=== PATIENT | male | born 1975 | race Asian ===

== ENCOUNTER 2016-10-20 05:54 | Emergency (ER) | payer OTHER ==
[~2016-10-20] VITALS: Ht 185.4 cm; Wt 115.9 kg
[~2016-10-20 05:54] MED LIST: AMLO-511 PO; LISI40TA4 PO; LORA1TAB3 PO; PARO20TA24 PO; VENL-53 PO
[2016-10-20] MEDS ORDERED: MECLIZINE HCL 25 MG TABLET PO ONE (06:30)
[2016-10-20 07:19] VITALS: BP 155/94
== END 2016-10-20 07:40 | disposition home or self-care (01) ==
LOC: EMS 05:56
DX: R42 Dizziness and giddiness (principal); K21.9 Gastro-esophageal reflux disease without esophagitis; I10 Essential (primary) hypertension; Z88.1 Allergy status to other antibiotic agents
CPT/HCPCS: 99282

== ENCOUNTER 2017-02-03 12:46 | Emergency (ER) | payer OTHER ==
[~2017-02-03] VITALS: Ht 185.4 cm; Wt 119.5 kg
[~2017-02-03 12:46] MED LIST changes: -AMLO-511 PO; -PARO20TA24 PO
[2017-02-03] MEDS ORDERED: VENL50TA44 PO (13:09)
[2017-02-03] MEDS ORDERED: TAMS0.4C32 PO (13:09)
[2017-02-03] MEDS ORDERED: VENL-193 PO (13:09)
[2017-02-03] MEDS ORDERED: MULT1TAB69 PO (13:09)
[2017-02-03 14:40] VITALS: BP 151/100
== END 2017-02-03 14:43 | disposition home or self-care (01) ==
LOC: EMS 12:47
DX: T78.40XA Allergy, unspecified, initial encounter (principal); F41.9 Anxiety disorder, unspecified; I10 Essential (primary) hypertension; K21.9 Gastro-esophageal reflux disease without esophagitis; Z88.1 Allergy status to other antibiotic agents; X58.XXXA Exposure to other specified factors, initial encounter
CPT/HCPCS: 99281

== ENCOUNTER 2017-03-04 08:53 | Emergency (ER) | payer OTHER ==
[~2017-03-04] VITALS: Ht 188 cm; Wt 120.5 kg
[~2017-03-04 08:53] MED LIST changes: +MULT1TAB69 PO; +TAMS0.4C32 PO; +VENL-193 PO; -VENL-53 PO; +VENL50TA44 PO
[2017-03-04 08:54] VITALS: BP 151/100
[2017-03-04] MEDS ORDERED: KETOROLAC TROMETHAMINE 60 MG/2 ML VIAL IM ONE (09:45)
== END 2017-03-04 10:21 | disposition home or self-care (01) ==
LOC: EMS 08:57
DX: S13.4XXA Sprain of ligaments of cervical spine, initial encounter (principal); I10 Essential (primary) hypertension; K21.9 Gastro-esophageal reflux disease without esophagitis; Z88.1 Allergy status to other antibiotic agents; X50.0XXA Overexertion from strenuous movement or load, initial encounter; Y93.89 Activity, other specified; Y92.89 Other specified places as the place of occurrence of the external cause; Y99.8 Other external cause status
CPT/HCPCS: 96372; 99283; J1885

== ENCOUNTER 2017-03-08 01:20 | Emergency (ER) | payer OTHER ==
[~2017-03-08] VITALS: Ht 182.9 cm; Wt 109.0 kg
[2017-03-08] MEDS ORDERED: OXYC-341 PO (01:43)
[2017-03-08] MEDS ORDERED: IBUP-2070 PO (01:43)
[2017-03-08 07:01] VITALS: BP 155/105
== END 2017-03-08 07:12 | disposition home or self-care (01) ==
LOC: EMS 01:25
DX: R51 Headache (principal); I10 Essential (primary) hypertension; K21.9 Gastro-esophageal reflux disease without esophagitis; F19.90 Other psychoactive substance use, unspecified, uncomplicated; Z88.1 Allergy status to other antibiotic agents
CPT/HCPCS: 70450; 99284

== ENCOUNTER 2017-03-21 13:40 | Emergency (ER) | payer OTHER ==
[~2017-03-21] VITALS: Ht 185.4 cm; Wt 118.2 kg
[~2017-03-21 13:40] MED LIST changes: +IBUP-2070 PO; -MULT1TAB69 PO; +OXYC-530 PO; -TAMS0.4C32 PO; -VENL50TA44 PO
[2017-03-21] MEDS ORDERED: AMLO-511 PO (13:43)
[2017-03-21 14:50] LABS: BASOPHILS # (AUTO) 0.02 K/uL (0.00-0.20); BASOPHILS % (AUTO) 0.3 % (0.0-2.0); EOSINOPHILS # (AUTO) 0.03 K/uL (0.00-0.70); EOSINOPHILS % (AUTO) 0.38 % (1.0-6.0); HEMATOCRIT 43.7 % (41-53); HEMOGLOBIN 14.5 g/dL (13.5-17.5); LYMPHOCYTES # (AUTO) 1.9 K/uL (1.0-4.8); MEAN CORPUSCULAR HEMOGLOBIN 28.6 pg (26.0-34.0); MEAN CORPUSCULAR HGB CONC 33.1 G/dL (31.0-37.0); MEAN CORPUSCULAR VOLUME 86 fL (80-100); MONOCYTES # (AUTO) 0.5 K/uL (0.1-1.0); MONOCYTES % (AUTO) 7.1 % (2.0-9.0); NEUTROPHILS # (AUTO) 4.5 K/uL (1.8-7.7); NEUTROPHILS % (AUTO) 65.2 % (40.0-70.0); PLATELET COUNT (AUTO) 250 K/uL (150-450); RED BLOOD CELL COUNT(AUTO) 5.05 MIL/uL (4.50-5.90); RED CELL DISTRIBUTION WIDTH 13.3 % (11.5-14.5); WHITE BLOOD COUNT (AUTO) 6.9 K/uL (4.5-11.0)
[2017-03-21 15:02] LABS: ANION GAP 8 mmol/L (8-16); CALCIUM, TOTAL 9.5 mg/dL (8.8-10.5); CARBON DIOXIDE 31 mmol/L (22-29); CHLORIDE 105 mmol/L (98-107); CREATININE 0.87 mg/dL (0.60-1.30); GLOMERULAR FILTR. RATE CALC > 60 mL/min (>60); POTASSIUM 4.3 mmol/L (3.5-5.1); SODIUM SERUM 144 mmol/L (136-145); UREA NITROGEN, BLOOD 15 mg/dL (7-18)
[2017-03-21 15:06] LABS: ALANINE AMINOTRANSFERASE 29 U/L (12-78); ALBUMIN 3.8 g/dL (3.4-5.0); ASPARTATE AMINOTRANSFERASE 15 U/L (15-37); BILIRUBIN,TOTAL 0.4 mg/dL (0.1-1.0); TOTAL PROTEIN, SERUM 8.2 g/dL (6.4-8.2)
[2017-03-21] MEDS ORDERED: VENL-67 PO (15:09)
[2017-03-21] MEDS ORDERED: SODIUM CHLORIDE 0.9% 1,000 ML IV ONE (15:15)
[2017-03-21] MEDS ORDERED: ONDANSETRON HCL 4 MG/2 ML VIAL IVP ONE (15:15)
[2017-03-21 15:21] LABS: APPEARANCE,URINE CLEAR (CLEAR); GLUCOSE, URINE (UA) NEGATIVE (NEGATIVE); KETONES,URINE TRACE mg/dL (NEGATIVE); LEUKOCYTE ESTERASE ,URINE NEGATIVE (NEGATIVE); OCCULT BLOOD,URINE NEGATIVE (NEGATIVE); PH,URINE 6.5 (5.0-8.0); PROTEIN,URINE TRACE (NEGATIVE)
[2017-03-21 15:22] LABS: ADD UA MICROSCOPIC NO
[2017-03-21] MEDS ORDERED: PROMETHAZINE HCL 25 MG TABLET PO ONE (15:30)
[2017-03-21 16:37] VITALS: BP 134/85
== END 2017-03-21 17:07 | disposition home or self-care (01) ==
LOC: EMS 13:41
DX: R10.11 Right upper quadrant pain (principal); R11.0 Nausea; I10 Essential (primary) hypertension; K21.9 Gastro-esophageal reflux disease without esophagitis; F15.90 Other stimulant use, unspecified, uncomplicated; Z98.84 Bariatric surgery status; Z88.1 Allergy status to other antibiotic agents
CPT/HCPCS: 36415; 80053; 80307; 81003; 83690; 85025; 96360; 99284; J2405; J7030

== ENCOUNTER 2017-08-14 11:10 | Emergency (ER) | payer OTHER ==
[~2017-08-14] VITALS: Ht 185.4 cm; Wt 125.9 kg
[~2017-08-14 11:10] MED LIST changes: +AMLO-511 PO; -OXYC-530 PO; -VENL-193 PO; +VENL-67 PO
[2017-08-14] MEDS ORDERED: PROM25S PR (11:44)
[2017-08-14 12:01] LABS: RAPID GROUP A STREP NEGATIVE (NEGATIVE)
[2017-08-14 12:05] LABS: INFLUENZA TYPE A NEGATIVE FOR TYPE A (NEGATIVE); INFLUENZA TYPE B NEGATIVE FOR TYPE B (NEGATIVE)
[2017-08-14] MEDS ORDERED: SODIUM CHLORIDE 0.9% 1,000 ML IV ONE (12:45)
[2017-08-14] MEDS ORDERED: IBUPROFEN 800 MG TABLET PO ONE (12:45)
[2017-08-14 14:04] VITALS: BP 136/96
== END 2017-08-14 14:10 | disposition home or self-care (01) ==
LOC: EMS 11:11
DX: J11.1 Influenza due to unidentified influenza virus with other respiratory manifestations (principal); J02.9 Acute pharyngitis, unspecified; B34.9 Viral infection, unspecified; F41.9 Anxiety disorder, unspecified; I10 Essential (primary) hypertension; K21.9 Gastro-esophageal reflux disease without esophagitis; F15.90 Other stimulant use, unspecified, uncomplicated; Z88.1 Allergy status to other antibiotic agents
CPT/HCPCS: 87430; 87804; 96360; 99284; J7030

== ENCOUNTER 2017-09-30 09:39 | Emergency (ER) | payer OTHER ==
[~2017-09-30] VITALS: Ht 188 cm; Wt 128.0 kg
[~2017-09-30 09:39] MED LIST changes: +PROM25S PR
[2017-09-30 10:54] VITALS: BP 146/97
== END 2017-09-30 11:00 | disposition home or self-care (01) ==
LOC: EMS 09:42
DX: S43.402A Unspecified sprain of left shoulder joint, initial encounter (principal); F32.9 Major depressive disorder, single episode, unspecified; F41.9 Anxiety disorder, unspecified; I10 Essential (primary) hypertension; K21.9 Gastro-esophageal reflux disease without esophagitis; F15.10 Other stimulant abuse, uncomplicated; Z98.84 Bariatric surgery status; Z88.1 Allergy status to other antibiotic agents; Z79.899 Other long term (current) drug therapy; X58.XXXA Exposure to other specified factors, initial encounter; Y93.89 Activity, other specified; Y92.89 Other specified places as the place of occurrence of the external cause; Y99.8 Other external cause status
CPT/HCPCS: 99283

== ENCOUNTER 2019-09-30 16:06 | Emergency (ER) | payer SELFPAY ==
[~2019-09-30 16:06] MED LIST changes: -AMLO-511 PO; -IBUP-2070 PO; +LORA-1000 PO; -LORA1TAB3 PO; -PROM25S PR
== END 2019-09-30 17:36 | disposition left against medical advice (07) ==
LOC: EMS 16:08
DX: R05 Cough (principal); Z53.21 Procedure and treatment not carried out due to patient leaving prior to being seen by health care provider

== ENCOUNTER 2019-12-18 08:07 | Emergency (ER) | payer OTHER ==
[~2019-12-18] VITALS: Ht 188 cm; Wt 136.4 kg
[2019-12-18] MEDS ORDERED: PRUC2TAB PO (08:16)
[2019-12-18] MEDS ORDERED: DOXA2TAB PO (08:16)
[2019-12-18] MEDS ORDERED: ONDA-104 PO (08:18)
[2019-12-18] MEDS ORDERED: PROM25S PR (08:18)
[2019-12-18] MEDS ORDERED: [UNRECOGNIZED DRUG - CODE] PO (08:18)
[2019-12-18] MEDS ORDERED: PB/HYOSCY/ATR/SCOP/LIDO/MAALOX 55 ML BOTTLE PO ONE (10:00)
[2019-12-18 10:19] LABS: BASOPHILS % (AUTO) 0.5 % (0.0-2.0); EOSINOPHILS % (AUTO) 0.3 % (1.0-6.0); HEMATOCRIT 44.5 % (41-53); HEMOGLOBIN 14.6 g/dL (13.5-17.5); MEAN CORPUSCULAR HEMOGLOBIN 28.2 pg (26.0-34.0); MEAN CORPUSCULAR HGB CONC 32.7 G/dL (31.0-37.0); MEAN CORPUSCULAR VOLUME 86 fL (80-100); MONOCYTES # (AUTO) 0.4 K/uL (0.1-1.0); MONOCYTES % (AUTO) 6.7 % (2.0-9.0); NEUTROPHILS # (AUTO) 4.3 K/uL (1.8-7.7); NEUTROPHILS % (AUTO) 74.5 % (40.0-70.0); PLATELET COUNT (AUTO) 238 K/uL (150-450); RED BLOOD CELL COUNT(AUTO) 5.16 MIL/uL (4.50-5.90); RED CELL DISTRIBUTION WIDTH 13.5 % (11.5-14.5)
[2019-12-18 10:34] LABS: PROTHROMBIN TIME 10.6 SEC (9.4-11.6)
[2019-12-18 10:35] LABS: ANION GAP 9 mmol/L (8-16); CALCIUM, TOTAL 8.9 mg/dL (8.8-10.5); CARBON DIOXIDE 27 mmol/L (22-29); CHLORIDE 105 mmol/L (98-107); CREATININE 0.96 mg/dL (0.60-1.30); GLOMERULAR FILTR. RATE CALC > 60 mL/min (>60); GLUCOSE,RANDOM 117 mg/dL (70-110); POTASSIUM 3.8 mmol/L (3.5-5.1); SODIUM SERUM 141 mmol/L (136-145); UREA NITROGEN, BLOOD 17 mg/dL (7-18)
[2019-12-18 10:55] LABS: B-TYPE NATRIURETIC PEPTIDE 15 pg/mL (0-100)
[2019-12-18 11:03] LABS: ALANINE AMINOTRANSFERASE 23 U/L (12-78); ALKALINE PHOSPHATASE 83 U/L (46-116); ASPARTATE AMINOTRANSFERASE 16 U/L (15-37); BILIRUBIN,TOTAL 0.4 mg/dL (0.1-1.0); CREATINE KINASE, TOTAL ONLY 129 U/L (39-308); TOTAL PROTEIN, SERUM 8.2 g/dL (6.4-8.2)
[2019-12-18 11:07] LABS: BILIRUBIN,URINE NEGATIVE (NEGATIVE); GLUCOSE, URINE (UA) NEGATIVE (NEGATIVE); KETONES,URINE NEGATIVE (NEGATIVE); LEUKOCYTE ESTERASE ,URINE NEGATIVE (NEGATIVE); NITRATE,URINE NEGATIVE (NEGATIVE); OCCULT BLOOD,URINE NEGATIVE (NEGATIVE); PH,URINE 7.5 (5.0-8.0); PROTEIN,URINE NEGATIVE (NEGATIVE); UROBILINOGEN,URINE 0.2 mg/dL (<=1.0)
[2019-12-18 11:11] LABS: APPEARANCE,URINE HAZY (CLEAR)
[2019-12-18 11:12] LABS: AMPHET/METH SCREEN,URINE NEGATIVE (NEGATIVE); BARBITURATE SCREEN, URINE NEGATIVE (NEGATIVE); BENZODIAZEPINES SCREEN,URINE NEGATIVE (NEGATIVE); CANNABINOID SCREEN,URINE NEGATIVE (NEGATIVE); COCAINE SCREEN,URINE NEGATIVE (NEGATIVE); METHADONE SCREEN, URINE NEGATIVE (NEGATIVE); OPIATE SCREEN,URINE NEGATIVE (NEGATIVE)
[2019-12-18 11:13] LABS: PHENCYCLIDINE SCREEN,URINE NEGATIVE (NEGATIVE)
[2019-12-18 11:44] VITALS: BP 148/70
== END 2019-12-18 11:40 | disposition home or self-care (01) ==
LOC: EMS 08:09
DX: K21.9 Gastro-esophageal reflux disease without esophagitis (principal); F15.90 Other stimulant use, unspecified, uncomplicated; F41.9 Anxiety disorder, unspecified; F32.9 Major depressive disorder, single episode, unspecified; Z88.8 Allergy status to other drugs, medicaments and biological substances; Z79.899 Other long term (current) drug therapy
CPT/HCPCS: 93005

== ENCOUNTER 2020-01-30 12:32 | Emergency (ER) | payer OTHER ==
[~2020-01-30] VITALS: Ht 188 cm; Wt 136.4 kg
[~2020-01-30 12:32] MED LIST changes: +DOXA2TAB PO; +ONDA-104 PO; +PROM25S PR; +PRUC2TAB PO; +[UNRECOGNIZED DRUG - CODE] PO
[2020-01-30] MEDS ORDERED: LORazepam 1 MG TABLET PO ONE (13:30)
[2020-01-30 14:20] VITALS: BP 144/90
== END 2020-01-30 14:27 | disposition home or self-care (01) ==
LOC: EMS 12:34
DX: F41.9 Anxiety disorder, unspecified (principal); Z20.828 Contact with and (suspected) exposure to other viral communicable diseases; F15.90 Other stimulant use, unspecified, uncomplicated; F32.9 Major depressive disorder, single episode, unspecified; I10 Essential (primary) hypertension; Z79.899 Other long term (current) drug therapy
CPT/HCPCS: 99283; U0003

== ENCOUNTER 2020-02-03 10:24 | Emergency (ER) | payer OTHER ==
[~2020-02-03] VITALS: Ht 188 cm; Wt 135.4 kg
[2020-02-03 10:34] VITALS: BP 141/95
[2020-02-03 11:57] LABS: BASOPHILS % (AUTO) 0.5 % (0.0-2.0); EOSINOPHILS % (AUTO) 0.3 % (1.0-6.0); HEMOGLOBIN 14.3 g/dL (13.5-17.5); LYMPHOCYTES # (AUTO) 1.5 K/uL (1.0-4.8); LYMPHOCYTES % (AUTO) 20.7 % (22.0-44.0); MEAN CORPUSCULAR HEMOGLOBIN 27.9 pg (26.0-34.0); MEAN CORPUSCULAR HGB CONC 32.6 G/dL (31.0-37.0); MEAN CORPUSCULAR VOLUME 86 fL (80-100); MONOCYTES # (AUTO) 0.4 K/uL (0.1-1.0); MONOCYTES % (AUTO) 5.5 % (2.0-9.0); NEUTROPHILS # (AUTO) 5.4 K/uL (1.8-7.7); PLATELET COUNT (AUTO) 255 K/uL (150-450); RED BLOOD CELL COUNT(AUTO) 5.14 MIL/uL (4.50-5.90); RED CELL DISTRIBUTION WIDTH 13.5 % (11.5-14.5)
[2020-02-03 12:05] LABS: ANION GAP 4 mmol/L (8-16); CALCIUM, TOTAL 8.8 mg/dL (8.8-10.5); CARBON DIOXIDE 30 mmol/L (22-29); CHLORIDE 106 mmol/L (98-107); CREATININE 1.03 mg/dL (0.60-1.30); GLOMERULAR FILTR. RATE CALC > 60 mL/min (>60); GLUCOSE,RANDOM 112 mg/dL (70-110); POTASSIUM 3.9 mmol/L (3.5-5.1); SODIUM SERUM 140 mmol/L (136-145); UREA NITROGEN, BLOOD 22 mg/dL (7-18)
[2020-02-03 12:12] LABS: ALANINE AMINOTRANSFERASE 21 U/L (12-78); ALBUMIN 3.7 g/dL (3.4-5.0); ALKALINE PHOSPHATASE 84 U/L (46-116); ASPARTATE AMINOTRANSFERASE 18 U/L (15-37); BILIRUBIN,TOTAL 0.5 mg/dL (0.1-1.0)
== END 2020-02-03 12:40 | disposition home or self-care (01) ==
LOC: EMS 10:26
DX: R00.2 Palpitations (principal); R07.89 Other chest pain; F41.9 Anxiety disorder, unspecified; R06.00 Dyspnea, unspecified; F32.9 Major depressive disorder, single episode, unspecified; K21.9 Gastro-esophageal reflux disease without esophagitis; I10 Essential (primary) hypertension; F19.90 Other psychoactive substance use, unspecified, uncomplicated; Z88.8 Allergy status to other drugs, medicaments and biological substances; Z79.899 Other long term (current) drug therapy
CPT/HCPCS: 93005; 36415-L1; 36415-TC; 71045-TC

== ENCOUNTER 2020-07-02 15:24 | Emergency (ER) | payer OTHER ==
[~2020-07-02] VITALS: Ht 188 cm; Wt 136.4 kg
[~2020-07-02 15:24] MED LIST changes: -PROM25S PR; +PROM25SU10 PR
[2020-07-02] MEDS ORDERED: LINA290C PO (15:37)
[2020-07-02] MEDS ORDERED: VENL-68 PO (15:37)
[2020-07-02] MEDS ORDERED: AmLODIPine BESYLATE 5 MG TABLET PO ONE (19:30)
[2020-07-02 19:51] LABS: EOSINOPHILS % (AUTO) 0.1 % (1.0-6.0); HEMOGLOBIN 14.5 g/dL (13.5-17.5); LYMPHOCYTES # (AUTO) 1.2 K/uL (1.0-4.8); MONOCYTES # (AUTO) 0.4 K/uL (0.1-1.0); NEUTROPHILS # (AUTO) 6.5 K/uL (1.8-7.7)
[2020-07-02] MEDS ORDERED: SODIUM CHLORIDE 0.9% 1,000 ML IV ONE (20:00)
[2020-07-02 20:05] LABS: ANION GAP 6 mmol/L (8-16); CALCIUM, TOTAL 9.1 mg/dL (8.8-10.5); CARBON DIOXIDE 29 mmol/L (22-29); CHLORIDE 103 mmol/L (98-107); CREATININE 0.87 mg/dL (0.60-1.30); GLOMERULAR FILTR. RATE CALC > 60 mL/min (>60); GLUCOSE,RANDOM 114 mg/dL (70-110); POTASSIUM 3.8 mmol/L (3.5-5.1); SODIUM SERUM 138 mmol/L (136-145); UREA NITROGEN, BLOOD 13 mg/dL (7-18)
[2020-07-02 20:06] LABS: BASOPHILS % (AUTO) 0.3 % (0.0-2.0); LYMPHOCYTES % (AUTO) 14.3 % (22.0-44.0); MEAN CORPUSCULAR HEMOGLOBIN 28.5 pg (26.0-34.0); MEAN CORPUSCULAR VOLUME 87 fL (80-100); MONOCYTES % (AUTO) 5.4 % (2.0-9.0); NEUTROPHILS % (AUTO) 79.9 % (40.0-70.0); PLATELET COUNT (AUTO) 274 K/uL (150-450); RED BLOOD CELL COUNT(AUTO) 5.09 MIL/uL (4.50-5.90); RED CELL DISTRIBUTION WIDTH 13.3 % (11.5-14.5)
[2020-07-02 20:13] LABS: ALANINE AMINOTRANSFERASE 26 U/L (12-78); ALBUMIN 3.9 g/dL (3.4-5.0); ALKALINE PHOSPHATASE 87 U/L (46-116); ASPARTATE AMINOTRANSFERASE 18 U/L (15-37); BILIRUBIN,TOTAL 0.3 mg/dL (0.1-1.0); TOTAL PROTEIN, SERUM 8.3 g/dL (6.4-8.2)
[2020-07-02] MEDS ORDERED: CloNIDine HCL 0.1 MG TABLET PO ONE (20:30)
[2020-07-02 21:23] VITALS: BP 155/100
== END 2020-07-02 21:23 | disposition home or self-care (01) ==
LOC: EMS 15:24
DX: I10 Essential (primary) hypertension (principal); F41.9 Anxiety disorder, unspecified; K21.9 Gastro-esophageal reflux disease without esophagitis; F15.90 Other stimulant use, unspecified, uncomplicated; Z88.1 Allergy status to other antibiotic agents; Z79.899 Other long term (current) drug therapy
CPT/HCPCS: 93005

== ENCOUNTER 2020-09-07 19:17 | Emergency (ER) | payer OTHER ==
[~2020-09-07] VITALS: Ht 188 cm; Wt 140.4 kg
[~2020-09-07 19:17] MED LIST changes: -DOXA2TAB PO; +LINA290C PO; -LISI40TA4 PO; +LISI40TA9 PO; -ONDA-104 PO; -PROM25SU10 PR; -PRUC2TAB PO; -VENL-67 PO; +VENL-68 PO; -[UNRECOGNIZED DRUG - CODE] PO
[2020-09-07] MEDS ORDERED: AMLO-257 PO (19:48)
[2020-09-07] MEDS ORDERED: ACETAMINOPHEN 325 MG TABLET PO ONE (20:00)
[2020-09-07] MEDS ORDERED: HydrOXYzine PAMOATE 50 MG CAPSULE PO ONE (20:00)
[2020-09-07] MEDS ORDERED: DOXA8 PO (20:06)
[2020-09-07] MEDS ORDERED: AmLODIPine BESYLATE 5 MG TABLET PO ONE (20:45)
[2020-09-07 21:46] VITALS: BP 162/103
== END 2020-09-07 22:27 | disposition short-term general hospital (02) ==
LOC: EMS 19:17
DX: G44.209 Tension-type headache, unspecified, not intractable (principal); I10 Essential (primary) hypertension; F41.9 Anxiety disorder, unspecified; F32.9 Major depressive disorder, single episode, unspecified; K21.9 Gastro-esophageal reflux disease without esophagitis; F19.90 Other psychoactive substance use, unspecified, uncomplicated; Z88.8 Allergy status to other drugs, medicaments and biological substances; Z79.899 Other long term (current) drug therapy
CPT/HCPCS: 99285; Z7502; Z7610

== ENCOUNTER 2020-11-04 22:43 | Emergency (ER) | payer OTHER ==
[~2020-11-04] VITALS: Ht 188 cm; Wt 142.7 kg
[~2020-11-04 22:43] MED LIST changes: +AMLO-257 PO; +DOXA8 PO
[2020-11-04 23:30] VITALS: BP 150/82
== END 2020-11-05 00:06 | disposition home or self-care (01) ==
LOC: EMS 22:48
DX: M54.40 Lumbago with sciatica, unspecified side (principal); F15.90 Other stimulant use, unspecified, uncomplicated; F41.9 Anxiety disorder, unspecified; K21.9 Gastro-esophageal reflux disease without esophagitis; I10 Essential (primary) hypertension; Z79.899 Other long term (current) drug therapy; Z88.1 Allergy status to other antibiotic agents
CPT/HCPCS: 99281; Z7502

== ENCOUNTER 2021-03-26 22:31 | Emergency (ER) | payer OTHER ==
[~2021-03-26] VITALS: Ht 188 cm; Wt 143.2 kg
[2021-03-26 22:38] VITALS: BP 137/98
== END 2021-03-27 02:34 | disposition left against medical advice (07) ==
LOC: EMS 22:38
DX: R10.84 Generalized abdominal pain (principal); Z53.21 Procedure and treatment not carried out due to patient leaving prior to being seen by health care provider

== ENCOUNTER 2021-09-07 08:07 | Emergency (ER) | payer BC, OTHER ==
[~2021-09-07] VITALS: Ht 188 cm; Wt 140.9 kg
[2021-09-07] MEDS ORDERED: GABA-1216 PO (08:39)
[2021-09-07] MEDS ORDERED: OXYB5TAB20 PO (08:40)
[2021-09-07] MEDS ORDERED: PANT-31 PO (08:41)
[2021-09-07] MEDS ORDERED: PROM-163 PO (08:43)
[2021-09-07] MEDS ORDERED: ONDANSETRON HCL 4 MG/2 ML VIAL IVP ONE (09:00)
[2021-09-07] MEDS ORDERED: SODIUM CHLORIDE 0.9% 1,000 ML IV ONE (09:00)
[2021-09-07] MEDS ORDERED: DIPHENOXYLATE/ATROP 2.5-0.025 MG/5 ML ORAL.SYG LIQUID PO ONE (09:00)
[2021-09-07 09:19] LABS: BASOPHILS % (AUTO) 0.3 % (0.0-2.0); EOSINOPHILS % (AUTO) 0.3 % (1.0-6.0); HEMATOCRIT 44.2 % (41-53); HEMOGLOBIN 14.6 g/dL (13.5-17.5); LYMPHOCYTES # (AUTO) 0.6 K/uL (1.0-4.8); LYMPHOCYTES % (AUTO) 4.3 % (22.0-44.0); MEAN CORPUSCULAR HEMOGLOBIN 27.5 pg (26.0-34.0); MEAN CORPUSCULAR VOLUME 83 fL (80-100); MONOCYTES # (AUTO) 0.9 K/uL (0.1-1.0); MONOCYTES % (AUTO) 6.3 % (2.0-9.0); NEUTROPHILS # (AUTO) 12.9 K/uL (1.8-7.7); PLATELET COUNT (AUTO) 289 K/uL (150-450); RED CELL DISTRIBUTION WIDTH 13.6 % (11.5-14.5)
[2021-09-07 09:20] LABS: NEUTROPHILS % (AUTO) 88.8 % (40.0-70.0)
[2021-09-07 09:32] LABS: ANION GAP 9 mmol/L (8-16); CALCIUM, TOTAL 9.1 mg/dL (8.8-10.5); CARBON DIOXIDE 28 mmol/L (22-29); CHLORIDE 103 mmol/L (98-107); CREATININE 0.89 mg/dL (0.60-1.30); GLOMERULAR FILTR. RATE CALC > 60 mL/min (>60); GLUCOSE,RANDOM 130 mg/dL (70-110); POTASSIUM 4.1 mmol/L (3.5-5.1); SODIUM SERUM 140 mmol/L (136-145); UREA NITROGEN, BLOOD 18 mg/dL (7-18)
[2021-09-07 09:38] LABS: ALANINE AMINOTRANSFERASE 24 U/L (12-78); ALBUMIN 3.6 g/dL (3.4-5.0); ALKALINE PHOSPHATASE 91 U/L (46-116); ASPARTATE AMINOTRANSFERASE 17 U/L (15-37); BILIRUBIN,TOTAL 0.3 mg/dL (0.1-1.0); LIPASE 71 U/L (73-393); TOTAL PROTEIN, SERUM 8.2 g/dL (6.4-8.2)
[2021-09-07 12:07] VITALS: BP 143/63
[2021-09-07] MEDS ORDERED: ONDA-104 PO (12:07)
== END 2021-09-07 12:53 | disposition home or self-care (01) ==
LOC: EMS 08:18
DX: R11.2 Nausea with vomiting, unspecified (principal); I10 Essential (primary) hypertension; E78.00 Pure hypercholesterolemia, unspecified; K21.9 Gastro-esophageal reflux disease without esophagitis; F32.9 Major depressive disorder, single episode, unspecified; F15.90 Other stimulant use, unspecified, uncomplicated; Z88.1 Allergy status to other antibiotic agents; Z79.899 Other long term (current) drug therapy
CPT/HCPCS: 36415; 80053; 83690; 85025; 96361; 96374; 99283; J2405

== ENCOUNTER 2021-10-04 11:45 | Emergency (ER) | payer BC ==
[~2021-10-04] VITALS: Ht 188 cm; Wt 135.0 kg
[~2021-10-04 11:45] MED LIST changes: +GABA-1216 PO; +ONDA-104 PO; +OXYB5TAB20 PO; +PANT-31 PO; +PROM-163 PO
[2021-10-04] MEDS ORDERED: PERTUSS(ACELL),DIPH,TET VAC/PF 0.5 ML SYRINGE IM. ONE (12:30)
[2021-10-04] MEDS ORDERED: AMOX TR/POT CLAV 875 MG/125 MG TABLET PO ONE (12:30)
[2021-10-04 13:39] VITALS: BP 131/86
[2021-10-04] MEDS ORDERED: AMOX1TAB16 PO (13:54)
== END 2021-10-04 14:20 | disposition home or self-care (01) ==
LOC: EMS 11:47
DX: S61.431A Puncture wound without foreign body of right hand, initial encounter (principal); I10 Essential (primary) hypertension; F41.9 Anxiety disorder, unspecified; Z88.1 Allergy status to other antibiotic agents; Z79.899 Other long term (current) drug therapy; W54.0XXA Bitten by dog, initial encounter; Y93.89 Activity, other specified; Y92.89 Other specified places as the place of occurrence of the external cause; Y99.8 Other external cause status
CPT/HCPCS: 90471; 90715; 99283

== ENCOUNTER 2021-11-11 22:58 | Emergency (ER) | payer BC ==
[~2021-11-11] VITALS: Ht 188 cm; Wt 134.2 kg
[~2021-11-11 22:58] MED LIST changes: +AMOX1TAB16 PO
[2021-11-11 23:58] LABS: APPEARANCE,URINE CLEAR (CLEAR); BILIRUBIN,URINE NEGATIVE (NEGATIVE); GLUCOSE, URINE (UA) NEGATIVE (NEGATIVE); LEUKOCYTE ESTERASE ,URINE NEGATIVE (NEGATIVE); NITRATE,URINE NEGATIVE (NEGATIVE); OCCULT BLOOD,URINE SMALL (NEGATIVE); PROTEIN,URINE NEGATIVE (NEGATIVE); SPECIFIC GRAVITIY, URINE 1.016 (1.003-1.030); UROBILINOGEN,URINE <=1.0 mg/dL (<=1.0)
[2021-11-12] MEDS ORDERED: TAMS-1 PO (01:39)
[2021-11-12 01:43] VITALS: BP 139/70
[2021-11-12 03:37] LABS: BACTERIA,URINE None Seen /HPF (None Seen); SQUAMOUS EPITHELIAL CELL,UR Few /LPF (None Seen); WBC,URINE None Seen /HPF (0-5)
== END 2021-11-12 01:45 | disposition home or self-care (01) ==
LOC: EMS 23:09
DX: R39.15 Urgency of urination (principal); F41.9 Anxiety disorder, unspecified; I10 Essential (primary) hypertension; K31.84 Gastroparesis; Z98.890 Other specified postprocedural states; Z88.1 Allergy status to other antibiotic agents
CPT/HCPCS: 74018; 81001; 99284

== ENCOUNTER 2023-01-08 16:51 | Emergency (ER) | payer BC, OTHER ==
[~2023-01-08] VITALS: Ht 188 cm; Wt 131.8 kg
[~2023-01-08 16:51] MED LIST changes: -AMOX1TAB16 PO; -DOXA8 PO; -PROM-163 PO; +PROM25TA PO; +TAMS-1 PO
[2023-01-08] MEDS ORDERED: LISI30TA4 PO (17:03)
[2023-01-08] MEDS ORDERED: AMLO5TAB66 PO (17:03)
[2023-01-08] MEDS ORDERED: CLON0.5T4 PO (17:03)
[2023-01-08] MEDS ORDERED: GABA-529 PO (17:03)
[2023-01-08] MEDS ORDERED: TRI2515C TP (20:42)
[2023-01-08] MEDS ORDERED: BACLOFEN 10 MG TABLET PO ONE (20:45)
[2023-01-08] MEDS ORDERED: IBUPROFEN 600 MG TABLET PO ONE (20:45)
[2023-01-08 21:00] VITALS: BP 124/81
[2023-01-08] MEDS ORDERED: BACL10TA PO (21:00)
[2023-01-08] MEDS ORDERED: IBUP-1554 PO (21:00)
== END 2023-01-08 21:36 | disposition still patient (30) ==
LOC: EMS 17:38
DX: S39.012A Strain of muscle, fascia and tendon of lower back, initial encounter (principal); F41.9 Anxiety disorder, unspecified; F32.A Depression, unspecified; I10 Essential (primary) hypertension; K31.84 Gastroparesis; Z88.8 Allergy status to other drugs, medicaments and biological substances; X58.XXXA Exposure to other specified factors, initial encounter; Y93.89 Activity, other specified; Y92.89 Other specified places as the place of occurrence of the external cause; Y99.8 Other external cause status
CPT/HCPCS: 99283

== ENCOUNTER 2023-04-27 20:32 | Emergency (ER) | payer OTHER ==
[~2023-04-27] VITALS: Ht 188 cm; Wt 128.0 kg
[~2023-04-27 20:32] MED LIST changes: -AMLO-257 PO; +AMLO5TAB66 PO; +BACL10TA PO; +CLON0.5T4 PO; -GABA-1216 PO; +GABA-529 PO; +IBUP-1554 PO; +LISI30TA4 PO; -LISI40TA9 PO; -LORA-1000 PO; -ONDA-104 PO; -OXYB5TAB20 PO; -PROM25TA PO; -TAMS-1 PO; +TRI2515C TP
[2023-04-27 20:33] VITALS: TEMP 98.7
[2023-04-27 21:25] LABS: APPEARANCE,URINE HAZY (CLEAR); BILIRUBIN,URINE NEGATIVE (NEGATIVE); COLOR,URINE LIGHT YELLOW (YELLOW); GLUCOSE, URINE (UA) NEGATIVE (NEGATIVE); KETONES,URINE NEGATIVE (NEGATIVE); LEUKOCYTE ESTERASE ,URINE NEGATIVE (NEGATIVE); NITRATE,URINE NEGATIVE (NEGATIVE); OCCULT BLOOD,URINE NEGATIVE (NEGATIVE); PROTEIN,URINE NEGATIVE (NEGATIVE); SPECIFIC GRAVITIY, URINE 1.019 (1.003-1.030); UROBILINOGEN,URINE <=1.0 mg/dL (<=1.0)
[2023-04-27 21:47] LABS: BASOPHILS % (AUTO) 0.5 % (0.0-2.0); EOSINOPHILS % (AUTO) 0.9 % (1.0-6.0); HEMATOCRIT 41.3 % (41-53); HEMOGLOBIN 13.5 g/dL (13.5-17.5); LYMPHOCYTES # (AUTO) 2.4 K/uL (1.0-4.8); LYMPHOCYTES % (AUTO) 37.5 % (22.0-44.0); MEAN CORPUSCULAR HEMOGLOBIN 28.6 pg (26.0-34.0); MEAN CORPUSCULAR HGB CONC 32.6 G/dL (31.0-37.0); MEAN CORPUSCULAR VOLUME 88 fL (80-100); MONOCYTES # (AUTO) 0.6 K/uL (0.1-1.0); MONOCYTES % (AUTO) 9.6 % (2.0-9.0); NEUTROPHILS # (AUTO) 3.3 K/uL (1.8-7.7); NEUTROPHILS % (AUTO) 51.5 % (40.0-70.0); PLATELET COUNT (AUTO) 283 K/uL (150-450); RED CELL DISTRIBUTION WIDTH 13.3 % (11.5-14.5); WHITE BLOOD COUNT (AUTO) 6.3 K/uL (4.5-11.0)
[2023-04-27 22:20] LABS: ANION GAP 11 mmol/L (8-16); CALCIUM, TOTAL 9.2 mg/dL (8.8-10.5); CARBON DIOXIDE 28 mmol/L (22-29); CHLORIDE 103 mmol/L (98-107); CREATININE 0.96 mg/dL (0.60-1.30); GLOMERULAR FILTR. RATE CALC > 60 mL/min (>60); GLUCOSE,RANDOM 100 mg/dL (70-110); POTASSIUM 3.6 mmol/L (3.5-5.1); SODIUM SERUM 142 mmol/L (136-145); UREA NITROGEN, BLOOD 19 mg/dL (7-18)
[2023-04-27 22:25] LABS: ALANINE AMINOTRANSFERASE 17 U/L (12-78); ALBUMIN 3.6 g/dL (3.4-5.0); ALKALINE PHOSPHATASE 96 U/L (46-116); ASPARTATE AMINOTRANSFERASE 16 U/L (15-37); BILIRUBIN,TOTAL 0.3 mg/dL (0.1-1.0); LIPASE 31 U/L (16-77); TOTAL PROTEIN, SERUM 7.7 g/dL (6.4-8.2)
[2023-04-28] MEDS ORDERED: IBUP-1493 PO (01:12)
[2023-04-28 01:22] VITALS: BP 130/72; PULSE 70; RESP 18
== END 2023-04-28 01:22 | disposition home or self-care (01) ==
LOC: EMS 20:32
DX: R10.11 Right upper quadrant pain (principal); R07.89 Other chest pain; F41.9 Anxiety disorder, unspecified; F32.A Depression, unspecified; I10 Essential (primary) hypertension; Z98.890 Other specified postprocedural states; Z88.8 Allergy status to other drugs, medicaments and biological substances
CPT/HCPCS: 71045; 76705; 80053; 81003; 83690; 85025; 93005; 99285; 36415-L1; 36415-TC

== ENCOUNTER 2023-07-08 22:35 | Emergency (ER) | payer OTHER ==
[~2023-07-08] VITALS: Ht 188 cm; Wt 127.0 kg
[~2023-07-08 22:35] MED LIST changes: +IBUP-1493 PO
[2023-07-08 22:40] VITALS: BP 156/105; PULSE 130; RESP 18; TEMP 98.1
[2023-07-09 00:46] LABS: COVID AG,FIA SOURCE NASAL SWAB
[2023-07-09 01:05] LABS: SARS-COV2 (COVID) ANTIGEN,FIA Positive (Negative)
[2023-07-09] MEDS ORDERED: NIRM1TAB4 PO (01:29)
== END 2023-07-09 03:51 | disposition home or self-care (01) ==
LOC: EMS 22:37
DX: U07.1 COVID-19 (principal); I10 Essential (primary) hypertension; F41.9 Anxiety disorder, unspecified; F32.A Depression, unspecified; K31.84 Gastroparesis; Z88.8 Allergy status to other drugs, medicaments and biological substances
CPT/HCPCS: 99283

== ENCOUNTER 2023-07-10 17:07 | Emergency (ER) | payer OTHER ==
[~2023-07-10] VITALS: Ht 182.9 cm; Wt 127.3 kg
[~2023-07-10 17:07] MED LIST changes: +NIRM1TAB4 PO
[2023-07-10 17:10] VITALS: TEMP 98.1
[2023-07-10 17:45] LABS: EOSINOPHILS % (AUTO) 0.2 % (1.0-6.0); HEMATOCRIT 41.5 % (41-53); LYMPHOCYTES # (AUTO) 1.4 K/uL (1.0-4.8); LYMPHOCYTES % (AUTO) 32.1 % (22.0-44.0); MEAN CORPUSCULAR HEMOGLOBIN 29.2 pg (26.0-34.0); MEAN CORPUSCULAR HGB CONC 33.7 G/dL (31.0-37.0); MEAN CORPUSCULAR VOLUME 87 fL (80-100); MONOCYTES # (AUTO) 0.9 K/uL (0.1-1.0); MONOCYTES % (AUTO) 21.8 % (2.0-9.0); NEUTROPHILS # (AUTO) 1.9 K/uL (1.8-7.7); NEUTROPHILS % (AUTO) 44.9 % (40.0-70.0); PLATELET COUNT (AUTO) 243 K/uL (150-450); RED BLOOD CELL COUNT(AUTO) 4.79 MIL/uL (4.50-5.90); RED CELL DISTRIBUTION WIDTH 13.8 % (11.5-14.5); WHITE BLOOD COUNT (AUTO) 4.3 K/uL (4.5-11.0)
[2023-07-10 17:55] LABS: ANION GAP 8 mmol/L (8-16); CALCIUM, TOTAL 9.1 mg/dL (8.8-10.5); CARBON DIOXIDE 29 mmol/L (22-29); CHLORIDE 101 mmol/L (98-107); CREATININE 1.12 mg/dL (0.60-1.30); GLOMERULAR FILTR. RATE CALC > 60 mL/min (>60); GLUCOSE,RANDOM 151 mg/dL (70-110); POTASSIUM 3.6 mmol/L (3.5-5.1); SODIUM SERUM 138 mmol/L (136-145); UREA NITROGEN, BLOOD 20 mg/dL (7-18)
[2023-07-10 17:59] LABS: PLATELET MORPHOLOGY COMMENT LARGE PLTS PRESENT; RBC MORPHOLOGY COMMENT NORMAL RBC MORPH
[2023-07-10 18:00] LABS: B-TYPE NATRIURETIC PEPTIDE < 5 pg/mL (0-100)
[2023-07-10 18:01] LABS: ALANINE AMINOTRANSFERASE 32 U/L (12-78); ALBUMIN 3.3 g/dL (3.4-5.0); ALKALINE PHOSPHATASE 97 U/L (46-116); ASPARTATE AMINOTRANSFERASE 26 U/L (15-37); BILIRUBIN,TOTAL 0.2 mg/dL (0.1-1.0); CREATINE KINASE, TOTAL ONLY 87 U/L (39-308); TOTAL PROTEIN, SERUM 7.8 g/dL (6.4-8.2)
[2023-07-10 18:02] LABS: TROPONIN I-HIGH SENSITIVITY 7 ng/L (<76)
[2023-07-10 19:02] VITALS: BP 137/78; PULSE 98; RESP 18
== END 2023-07-10 19:08 | disposition home or self-care (01) ==
LOC: EMS 17:09
DX: U07.1 COVID-19 (principal); F41.9 Anxiety disorder, unspecified; F32.A Depression, unspecified; I10 Essential (primary) hypertension; Z98.890 Other specified postprocedural states; Z88.8 Allergy status to other drugs, medicaments and biological substances
CPT/HCPCS: 71045; 80053; 82550; 83880; 84484; 85025; 93005; 99285; 36415-L1; 36415-TC

== ENCOUNTER 2023-07-15 09:39 | Emergency (ER) | payer OTHER ==
[~2023-07-15] VITALS: Ht 188 cm; Wt 127.3 kg
[2023-07-15 09:44] VITALS: BP 124/93; PULSE 97; RESP 18; TEMP 98.3
[2023-07-15] MEDS ORDERED: CHOL100062 PO (09:48)
[2023-07-15] MEDS ORDERED: ALBU18HF12 IH (09:48)
[2023-07-15] MEDS ORDERED: TELM80TA10 PO (09:48)
[2023-07-15 10:12] LABS: BASOPHILS % (AUTO) 0.5 % (0.0-2.0); EOSINOPHILS % (AUTO) 0.6 % (1.0-6.0); HEMATOCRIT 42.7 % (41-53); HEMOGLOBIN 14.3 g/dL (13.5-17.5); LYMPHOCYTES # (AUTO) 1.7 K/uL (1.0-4.8); LYMPHOCYTES % (AUTO) 29.3 % (22.0-44.0); MEAN CORPUSCULAR HEMOGLOBIN 29.1 pg (26.0-34.0); MEAN CORPUSCULAR HGB CONC 33.4 G/dL (31.0-37.0); MEAN CORPUSCULAR VOLUME 87 fL (80-100); MONOCYTES # (AUTO) 0.4 K/uL (0.1-1.0); MONOCYTES % (AUTO) 6.8 % (2.0-9.0); NEUTROPHILS # (AUTO) 3.7 K/uL (1.8-7.7); NEUTROPHILS % (AUTO) 62.8 % (40.0-70.0); PLATELET COUNT (AUTO) 305 K/uL (150-450); RED BLOOD CELL COUNT(AUTO) 4.91 MIL/uL (4.50-5.90); RED CELL DISTRIBUTION WIDTH 13.4 % (11.5-14.5); WHITE BLOOD COUNT (AUTO) 5.8 K/uL (4.5-11.0)
[2023-07-15 10:27] LABS: TROPONIN I-HIGH SENSITIVITY 9 ng/L (<76)
[2023-07-15 10:38] LABS: B-TYPE NATRIURETIC PEPTIDE < 5 pg/mL (0-100)
[2023-07-15 10:45] LABS: ANION GAP 8 mmol/L (8-16); CALCIUM, TOTAL 9.8 mg/dL (8.8-10.5); CARBON DIOXIDE 28 mmol/L (22-29); CHLORIDE 102 mmol/L (98-107); CREATININE 0.78 mg/dL (0.60-1.30); GLOMERULAR FILTR. RATE CALC > 60 mL/min (>60); GLUCOSE,RANDOM 118 mg/dL (70-110); POTASSIUM 4.1 mmol/L (3.5-5.1); SODIUM SERUM 138 mmol/L (136-145); UREA NITROGEN, BLOOD 17 mg/dL (7-18)
[2023-07-15 10:51] LABS: ALANINE AMINOTRANSFERASE 29 U/L (12-78); ALBUMIN 3.8 g/dL (3.4-5.0); ALKALINE PHOSPHATASE 94 U/L (46-116); ASPARTATE AMINOTRANSFERASE 19 U/L (15-37); BILIRUBIN,TOTAL 0.4 mg/dL (0.1-1.0); TOTAL PROTEIN, SERUM 8.5 g/dL (6.4-8.2)
[2023-07-15] MEDS ORDERED: LORazepam 1 MG TABLET PO ONE (11:00)
[2023-07-15 11:36] LABS: ALCOHOL, URINE DRUG SCREEN NEGATIVE (NEGATIVE); AMPHET/METH SCREEN,URINE NEGATIVE (NEGATIVE); BARBITURATE SCREEN, URINE NEGATIVE (NEGATIVE); BENZODIAZEPINES SCREEN,URINE NEGATIVE (NEGATIVE); CANNABINOID SCREEN,URINE NEGATIVE (NEGATIVE); COCAINE SCREEN,URINE NEGATIVE (NEGATIVE); METHADONE SCREEN, URINE NEGATIVE (NEGATIVE); OPIATE SCREEN,URINE NEGATIVE (NEGATIVE); PHENCYCLIDINE SCREEN,URINE NEGATIVE (NEGATIVE)
[2023-07-15] MEDS ORDERED: LORA-999 PO ×2 (12:42→13:13)
== END 2023-07-15 13:21 | disposition home or self-care (01) ==
LOC: EMS 09:39
DX: F41.9 Anxiety disorder, unspecified (principal); J45.909 Unspecified asthma, uncomplicated; F32.A Depression, unspecified; I10 Essential (primary) hypertension
CPT/HCPCS: 71045; 80053; 80307; 83880; 84484; 85025; 93005; 99285; 36415-L1; 36415-TC

== ENCOUNTER 2023-10-28 10:37 | Emergency (ER) | payer OTHER ==
[~2023-10-28] VITALS: Ht 188 cm; Wt 127.3 kg
[~2023-10-28 10:37] MED LIST changes: +ALBU18HF12 IH; -BACL10TA PO; +CHOL100062 PO; -CLON0.5T4 PO; -IBUP-1493 PO; -LISI30TA4 PO; -NIRM1TAB4 PO; +TELM80TA10 PO; -TRI2515C TP
[2023-10-28 10:54] VITALS: TEMP 98.3
[2023-10-28] MEDS ORDERED: NIFE-79 PO (10:59)
[2023-10-28] MEDS ORDERED: NIRM1TAB10 PO (10:59)
[2023-10-28 11:40] LABS: BASOPHILS % (AUTO) 0.4 % (0.0-2.0); EOSINOPHILS % (AUTO) 0.3 % (1.0-6.0); HEMATOCRIT 44.1 % (41-53); HEMOGLOBIN 14.8 g/dL (13.5-17.5); LYMPHOCYTES # (AUTO) 1.1 K/uL (1.0-4.8); LYMPHOCYTES % (AUTO) 13.8 % (22.0-44.0); MEAN CORPUSCULAR HEMOGLOBIN 28.8 pg (26.0-34.0); MEAN CORPUSCULAR HGB CONC 33.6 G/dL (31.0-37.0); MEAN CORPUSCULAR VOLUME 86 fL (80-100); MONOCYTES # (AUTO) 0.9 K/uL (0.1-1.0); MONOCYTES % (AUTO) 11.1 % (2.0-9.0); NEUTROPHILS # (AUTO) 5.7 K/uL (1.8-7.7); NEUTROPHILS % (AUTO) 74.4 % (40.0-70.0); PLATELET COUNT (AUTO) 319 K/uL (150-450); RED BLOOD CELL COUNT(AUTO) 5.16 MIL/uL (4.50-5.90); RED CELL DISTRIBUTION WIDTH 13.5 % (11.5-14.5); WHITE BLOOD COUNT (AUTO) 7.7 K/uL (4.5-11.0)
[2023-10-28 11:59] LABS: ANION GAP 9 mmol/L (8-16); CALCIUM, TOTAL 9.3 mg/dL (8.8-10.5); CARBON DIOXIDE 30 mmol/L (22-29); CHLORIDE 97 mmol/L (98-107); GLOMERULAR FILTR. RATE CALC > 60 mL/min (>60); GLUCOSE,RANDOM 129 mg/dL (70-110); POTASSIUM 3.6 mmol/L (3.5-5.1); SODIUM SERUM 136 mmol/L (136-145); UREA NITROGEN, BLOOD 20 mg/dL (7-18)
[2023-10-28 12:05] LABS: ALANINE AMINOTRANSFERASE 27 U/L (12-78); ALBUMIN 3.6 g/dL (3.4-5.0); ALKALINE PHOSPHATASE 105 U/L (46-116); ASPARTATE AMINOTRANSFERASE 18 U/L (15-37); BILIRUBIN,TOTAL 0.4 mg/dL (0.1-1.0); TOTAL PROTEIN, SERUM 8.9 g/dL (6.4-8.2)
[2023-10-28 14:00] VITALS: BP 125/76; PULSE 90; RESP 16
== END 2023-10-28 14:42 | disposition home or self-care (01) ==
LOC: EMS 10:37
DX: F41.9 Anxiety disorder, unspecified (principal); U07.1 COVID-19; R42 Dizziness and giddiness; J45.909 Unspecified asthma, uncomplicated; F32.A Depression, unspecified; I10 Essential (primary) hypertension; Z98.890 Other specified postprocedural states; Z88.8 Allergy status to other drugs, medicaments and biological substances
CPT/HCPCS: 80053; 85025; 99285

== ENCOUNTER 2025-05-05 07:34 | Emergency (ER) | payer OTHER ==
[~2025-05-05] VITALS: Ht 188 cm; Wt 124.5 kg
[~2025-05-05 07:34] MED LIST changes: +NIFE-79 PO; +NIRM1TAB10 PO
[2025-05-05 08:06] LABS: COVID AG,FIA SOURCE NASAL SWAB
[2025-05-05 08:51] LABS: INFLUENZA TYPE A NEGATIVE FOR TYPE A (NEGATIVE); INFLUENZA TYPE B NEGATIVE FOR TYPE B (NEGATIVE); SARS-COV2 (COVID) ANTIGEN,FIA Negative (Negative)
[2025-05-05 09:30] VITALS: BP 151/95; PULSE 97; RESP 18; TEMP 97.7; O2SAT 98
== END 2025-05-05 09:52 | disposition home or self-care (01) ==
LOC: EMS 07:34
DX: F41.9 Anxiety disorder, unspecified (principal); R06.02 Shortness of breath; R00.2 Palpitations; F32.A Depression, unspecified; I10 Essential (primary) hypertension; J45.909 Unspecified asthma, uncomplicated; Z98.890 Other specified postprocedural states; Z79.899 Other long term (current) drug therapy; Z88.1 Allergy status to other antibiotic agents; Z20.822 Contact with and (suspected) exposure to COVID-19
CPT/HCPCS: 71046; 87804; 93005; 99285